=== PATIENT | female | born 1970 | race Caucasian/White ===

== ENCOUNTER → 2020-12-15 | Outpatient (CLI) | payer OTHER | LOC: KOH-I 13:49 | DX: N20.0 Calculus of kidney (principal) | CPT/HCPCS: 74176 ==

== ENCOUNTER → 2021-04-17 | Outpatient (CLI) | payer OTHER | LOC: RAD 21:35 | DX: N30.00 Acute cystitis without hematuria (principal) | CPT/HCPCS: 74019; 81001; 87086 ==

== ENCOUNTER → 2021-05-27 | Outpatient (CLI) | payer OTHER | LOC: RAD 17:49 | DX: N20.0 Calculus of kidney (principal); K59.00 Constipation, unspecified | CPT/HCPCS: 74018; 81001; 87086 ==

== ENCOUNTER → 2021-08-22 | Outpatient (CLI) | payer OTHER | LOC: RAD 15:12 | DX: N30.20 Other chronic cystitis without hematuria (principal); R14.3 Flatulence; N20.0 Calculus of kidney | CPT/HCPCS: 74018 ==

== ENCOUNTER → 2022-01-12 | Outpatient (CLI) | payer OTHER | LOC: LAB 16:44 | DX: N20.0 Calculus of kidney (principal) | CPT/HCPCS: 74018; 87086 ==

== ENCOUNTER → 2022-02-26 | Outpatient (CLI) | payer OTHER | LOC: KOH-I 02-02 13:00 | DX: N20.0 Calculus of kidney (principal) | CPT/HCPCS: 74176 ==

== ENCOUNTER → 2022-04-14 | Outpatient (CLI) | payer OTHER | LOC: RAD 20:28 | DX: N20.0 Calculus of kidney (principal); K59.00 Constipation, unspecified | CPT/HCPCS: 74018 ==